=== PATIENT | male | born 1990 | race Hispanic/Latino ===

== ENCOUNTER → 2019-07-15 06:49 | Outpatient (CLI) | payer OTHER, SELFPAY ==
--- NOTE | 2019-07-15 | DI.MRI.S_ITS ---
PROCEDURE: MR KNEE RT WO CON INDICATIONS: RIGHT KNEE PATELLAR INSTABILITY TECHNIQUE: Noncontrast sagittal PD fast spin echo and T2 fast spin echo with fat saturation, sagittal 3-D FLASH with fat saturation; coronal T1 spin echo and PD fast spin echo with fat saturation, and axial PD fast spin echo with fat saturation through the knee. COMPARISON: None. FINDINGS: Image quality: Excellent. Menisci: The medial meniscus is intact. There is truncation of the free edge of the anterior horn lateral meniscus. Anterior horn lateral meniscus is detached. Cruciate ligaments: The anterior and posterior cruciate ligaments appear intact. Medial structures: The medial collateral ligament appears intact. Visualized portions of the pes anserinus tendons appear normal. No abnormal bursal fluid. Lateral structures: The lateral collateral ligament, long and short heads of the biceps femoris tendon appear intact. The popliteus tendon appears normal. Iliotibial band appears normal. Anterior structures: The quadriceps and patellar tendons appear intact. Patellar alignment is normal. There is disruption of the medial patellar retinaculum and medial patellofemoral ligament. Moderate ill-defined T2 signal elevation adjacent to the femoral insertion sites is present. No femoral trochlear dysplasia or ventral trochlear prominence. No edema in the infrapatellar fat pad. Bones and cartilage: No displaced fracture. There is moderate ill-defined T2 signal elevation within the medial aspect of the patella. There is overlying irregularity and displacement of the medial patellar cortex. There is moderate ill-defined T2 signal elevation within the lateral femoral condyle nonweightbearing aspect. Joint space: There is a small knee joint effusion and a trace Kilgore's cyst. Normal appearing synovial plicae are incidentally noted. IMPRESSION: 1. Sequelae of recent lateral patellar dislocation. There is associated mild fracture deformity of the medial patella with underlying contusion. Kissing contusion within the lateral femoral condyle is present. Disruption of the medial patellar retinaculum and medial patellofemoral ligament. 2. Detachment and radial tearing of the anterior horn lateral meniscus. 3. Small knee joint effusion and trace Kilgore's cyst. Dictated by: Marvin Weinberg M.D. on 07/15/2019 at 9:08 Approved by: Marvin Weinberg M.D. on 07/15/2019 at 9:15
== END ==
PROVIDERS: Visit Provider Orthopaedic Surgery
DX: S83.281A Other tear of lateral meniscus, current injury, right knee, initial encounter (principal); S83.014S Lateral dislocation of right patella, sequela; M25.461 Effusion, right knee
CPT/HCPCS: 73721

== ENCOUNTER 2020-03-17 09:30 | Emergency (ER) | payer OTHER, SELFPAY ==
[2020-03-17 09:41] VITALS: BP 138/84; PULSE 88; RESP 18; TEMP 36.5; O2SAT 97; BMI 26.6
--- NOTE | 2020-03-17 09:48 | ED_ITS ---
HPI - Wound/Laceration General Chief Complaint: Wound/Laceration Stated Complaint: cut lt index finger /cooking Time Seen by Provider: 03/17/20 09:30 Source: patient Mode of arrival: Family Vehicle Limitations: no limitations History of Present Illness HPI narrative: 29-year-old male nonsmoker with noncontributory medical history presents with a chief complaint of an accidental laceration to the tip of his left finger just prior to arrival. His tetanus is up-to-date. He was using a sharp knife and cut the tip his left index finger and bleeding has been significant. He has full range of motion and denies any numbness, tingling or weakness. Onset (ago): minute(s) Extremity Location: Left: hand Place: work Patient tetanus UTD: Yes Context: accidental Associated symptoms: pain Treatments prior to arrival: bandage Related Data Home Medications Medication Instructions Recorded Confirmed No Known Home Medications 03/17/20 03/17/20 Allergies Allergy/AdvReac Type Severity Reaction Status Date / Time No Known Drug Allergies Allergy Verified 03/17/20 09:45 Review of Systems Constitutional Constitutional: Denies chills, Denies fatigue, Denies fever(s), Denies frequent falls, Denies lethargy and Denies weakness Eyes Eyes: Denies change in vision, Denies eye discharge, Denies irritation and Denies loss of vision ENT Ears, Nose, Mouth, and Throat: Denies change in voice, Denies dizziness, Denies neck pain, Denies sore throat and Denies throat swelling Cardiovascular Cardiovascular: Denies chest pain, Denies irregular heart rhythm, Denies lightheadedness, Denies palpitations, Denies dyspnea, Denies dyspnea on exertion and Denies orthopnea Respiratory Respiratory: Denies cough, Denies dyspnea, Denies dyspnea on exertion and Denies wheezing Gastrointestinal Gastrointestinal: Denies abdominal pain, Denies change in bowel habits, Denies diarrhea, Denies nausea and Denies vomiting Musculoskeletal Musculoskeletal: Denies neck pain and Denies numbness Integumentary/Breasts Skin/Breast: Denies pruritus, Denies erythema, Denies rash and Reports wounds Neurologic Neurologic: Denies behavioral changes, Denies confusion, Denies dizziness, Denies frequent falls, Denies loss of vision, Denies numbness and Denies weakness Psychiatric Psychiatric: Denies anxiety, Denies behavioral changes, Denies confusion, Denies depression, Denies homicidal ideation and Denies suicidal ideation Endocrine Endocrine: Denies fatigue, Denies flushing and Denies palpitations Hematologic/Lymphatic Hematologic/Lymphatic: Denies easy bruising Allergic/Immunologic Allergic/Immunologic: Denies urticaria, Denies throat swelling and Denies wheezing Patient History Social History Smoking Status: Never smoker Smoking Status: Never smoker alcohol intake frequency: 0-2 drinks per day Substance Use Type: does not use Exam Narrative Exam Narrative: GEN: AOx3 and in mild distress EYES: Pupils are equal, round, and reactive to light and accommodation. Extraoccular muscles are intact bilaterally. There is no subconjunctival hemorrhage or exudate. CHEST: Lungs are clear to auscultation bilaterally and free of wheezes, rales, or rhonchi. Heart rate is regular rhythm, there are no murmurs, clicks, rubs, or gallops. There is no chest wall tenderness. ABD: Abdomen is soft and nontender. There is no guarding or rebound. Bowel sounds are normal in all 4 quadrants. There is no mass or organomegaly. EXT: 1 x 0.5 cm avulsion laceration to the tip of left index finger with active bleeding Full painless ROM of all extremities with no loss of sensation or strength. SKIN: Warm, pink, and dry. No erythema or rash Initial Vital Signs Initial Vital Signs: Vital Signs Temperature 97.7 F 03/17/20 09:41 Pulse Rate 88 03/17/20 09:41 Respiratory Rate 18 03/17/20 09:41 Blood Pressure 138/84 03/17/20 09:41 Pulse Oximetry 97 03/17/20 09:41 Procedures Laceration Repair Laceration 1: Side (If applicable): left Size (cm): 1 Description: irregular Depth: simple, single layer Local Anesthetic: lidocaine 1% and with bicarb Pre-repair: wound explored and irrigated extensively Skin layer closed with: nylon Size (cm): 3-0 and other (1 suture for hemostasis) Number of sutures: 1 Course Orders Ordered: Discontinued Medications Lidocaine/Sodium Bicarbonate (Buffered Lidocaine 10 Ml Syr) 10 ml INJ NOW ONE Stop: 03/17/20 09:41 Last Admin: 03/17/20 09:51 Dose: 10 ml Documented by: DINORAH Vital Signs Vital signs: Vital Signs - 8 hr 03/17/20 09:41 Temperature 97.7 F Pulse Rate 88 Respiratory Rate 18 Blood Pressure 138/84 Pulse Oximetry 97 Discharge Plan Departure Patient Disposition: Home Clinical Impression: Laceration, Avulsion of skin Instructions: DI for Laceration Repair Activity Restrictions/Additional Instructions: *You have been diagnosed with [avulsion laceration to tip of finger] *What to do: *Take medications as directed *Follow up with your primary care provider in 2-3 days, call for an appointment. Let them know you were seen in the Emergency Department and that we ask that you be seen in follow up. You will likely need multiple follow ups for woundcare *Return to ER if you should have any new, worsening or concerning symptoms Prescriptions: No Action No Known Home Medications RF: 0 Referrals: [facility] [Outside] Stand Alone Forms: Work Release Note
[2020-03-17] MEDS: LIDO 1%/SOD BICARB 8.4% (10ML) 10 ML SYRINGE INJ (09:51)
[2020-03-17] MEDS: BACITRACIN OINT 0.9 GM PCKT 1 APPLIC TOP (10:16)
== END 2020-03-17 10:22 | disposition home or self-care (01) ==
LOC: ED 10:04
PROVIDERS: Emergency Provider Emergency Medicine
DX: S61.211A Laceration without foreign body of left index finger without damage to nail, initial encounter (principal); W26.0XXA Contact with knife, initial encounter
CPT/HCPCS: 12001; 99282; 99283